=== PATIENT | female | born 1985 ===

== ENCOUNTER 2022-04-02 13:30 | Inpatient (IN) | payer OTHER ==
[~2022-04-02] VITALS: Ht 165.1 cm; Wt 69.4 kg
[2022-04-04] MEDS ORDERED: PRENATABS RX T1 EACH PO (18:45)
== END 2022-04-06 14:38 | disposition home or self-care (01) | DRG 807 ==
LOC: LDR 04-04 18:25 → OB/GYN 04-04 18:25
PROVIDERS: ADMIT Obstetrics & Gynecology Maternal & Fetal Medicine; ATTEND Obstetrics & Gynecology Maternal & Fetal Medicine
PROC: 10E0XZZ Delivery of Products of Conception, External Approach (ICD-10-PCS; principal; 2022-04-04)
PROC: 4A1HXCZ Monitoring of Products of Conception, Cardiac Rate, External Approach (ICD-10-PCS; 2022-04-04)
DX: O80 Encounter for full-term uncomplicated delivery (principal); Z37.0 Single live birth; Z3A.38 38 weeks gestation of pregnancy; Z20.822 Contact with and (suspected) exposure to COVID-19

== ENCOUNTER 2024-03-15 16:54 | Outpatient (CLI) | payer OTHER ==
[~2024-03-15 16:54] MED LIST: PRENATABS RX T1 EACH PO
== END 2024-03-15 18:14 | disposition home or self-care (01) ==
LOC: NST 16:54
PROVIDERS: ATTEND Obstetrics & Gynecology Gynecology
DX: Z34.83 Encounter for supervision of other normal pregnancy, third trimester (principal)

== ENCOUNTER 2024-03-22 13:45 | Inpatient (IN) | payer OTHER ==
[~2024-03-22] VITALS: Ht 162.6 cm; Wt 73.0 kg
[2024-04-01] VITALS (7 sets, daily range): BP systolic 118–139; BP diastolic 63–82
[2024-04-01] MEDS ORDERED: RINGERS SOLUTION,LACTATED 1,000 ML IV SCH (06:15)
[2024-04-01] MEDS ORDERED: MORPHINE SULFATE 4 MG/ML CARTRIDGE IV PRN (06:15)
[2024-04-01 06:31] LABS: HEMATOCRIT 33.8 % (36.0-45.00); HEMOGLOBIN 11.4 g/dL (12.0-15.00); MEAN CELL VOLUME 89.1 fL (80.00-100.00); MEAN CORPUSCULAR HEMOGLOBIN 29.9 pg (27.00-32.0); MEAN CORPUSCULAR HGB CONC 33.6 g/dl (32.0-36.0); PLATELET COUNT 185 K/uL (150-450); RED CELL DISTRIBUTION WIDTH 13.9 % (11.5-14.5)
[2024-04-01 06:55] LABS: INR < 0.93; PARTIAL THROMBOPLASTIN TIME 26.5 SECONDS (22.0-34.0)
[2024-04-01 07:19] LABS: ALBUMIN 2.5 gm/dL (3.4-5.0); BILIRUBIN TOTAL 0.24 mg/dL (0.3-1.2); CALCIUM 8.4 mg/dL (8.5-10.1); CREATININE SERUM 0.53 mg/dL (0.55-1.02); GFR 129.8; GLOBULINA 3.5 G/DL (2.4-3.5); POTASSIUM 4.07 mEq/L (3.5-5.1)
[2024-04-01] MEDS ORDERED: OXYTOCIN 20 UNITS/1000ML RL PIGGYBAG IV ONE (08:12)
[2024-04-01] MEDS ORDERED: CHLORHEXIDINE GLUCONATE 120 ML BOTTLE TOP ONE (08:12)
[2024-04-01] MEDS ORDERED: ERYTHROMYCIN BASE OPHT 1GM EACH TUBE OP ONE ×2 (08:12→09:00)
[2024-04-01] MEDS ORDERED: LIDOCAINE HCL 1% 10ML VIAL ONE (08:12)
[2024-04-01] MEDS ORDERED: CHLORHEXIDINE GLUCONATE 120 ML BOTTLE TP SCH (08:45)
[2024-04-01] MEDS ORDERED: OXYTOCIN 1,000 ML IV SCH (08:45)
[2024-04-01] MEDS ORDERED: OxyCODONE HCL/APAP UD (PERCOCET) PO PRN (08:45)
[2024-04-01] MEDS ORDERED: DOCUSATE SODIUM 100MG CAP PO SCH (09:00)
[2024-04-01] MEDS ORDERED: LIDOCAINE HCL 1% 10ML VIAL PERCUT ONE (09:00)
[2024-04-01] MEDS ORDERED: PNV,CALCIUM 72/IRON/FOLIC ACID 1 TAB TABLET PO SCH (09:00)
[2024-04-01] MEDS ORDERED: KETOROLAC TROMETHAMINE 10 MG TABLET PO SCH (12:00)
[2024-04-02] VITALS: BP 112/74
[2024-04-02 07:39] VITALS: BP 107/71
[2024-04-02 17:55] VITALS: BP 126/81
[2024-04-03] VITALS: BP 128/66
[2024-04-03 09:02] VITALS: BP 112/54
[2024-04-03] MEDS ORDERED: KETO10TA2 PO (09:51)
== END 2024-04-03 12:56 | disposition home or self-care (01) | DRG 807 ==
LOC: LDR 04-01 06:08 → OB/GYN 04-01 06:08 → LDR 04-01 06:32 → OB/GYN 04-01 14:07
PROVIDERS: Obstetrics & Gynecology Gynecology; ADMIT Obstetrics & Gynecology Maternal & Fetal Medicine; ATTEND Obstetrics & Gynecology Maternal & Fetal Medicine
PROC: 10E0XZZ Delivery of Products of Conception, External Approach (ICD-10-PCS; principal; 2024-04-01)
PROC: 0KQM0ZZ Repair Perineum Muscle, Open Approach (ICD-10-PCS; 2024-04-01)
PROC: 4A1HXCZ Monitoring of Products of Conception, Cardiac Rate, External Approach (ICD-10-PCS; 2024-04-01)
DX: O70.1 Second degree perineal laceration during delivery (principal); Z37.0 Single live birth; Z3A.39 39 weeks gestation of pregnancy

== ENCOUNTER 2024-03-25 11:55 | Outpatient (CLI) | payer OTHER ==
[2024-03-25 12:14] VITALS: BP 114/63
== END 2024-03-25 13:20 | disposition home or self-care (01) ==
LOC: NST 11:55
PROVIDERS: ATTEND Obstetrics & Gynecology
DX: Z3A.38 38 weeks gestation of pregnancy (principal)